=== PATIENT | female | born 1950 | race African-American/Black ===

== ENCOUNTER 2016-12-05 04:49 | Emergency (ER) | payer MEDICAID ==
[~2016-12-05] VITALS: Ht 172.7 cm; Wt 144.5 kg
[~2016-12-05 04:49] MED LIST: HYDR10TA16 PO; LACT20SO4 PO; LISI40TA PO; LORC10TA PO; METO10TA PO; NAPR500 PO; PHEN100 PO; PIOG30 PO; PROT40TA PO; STOO100C PO
[2016-12-05 04:51] VITALS: BP 138/75; PULSE 83; RESP 14; TEMP 98.1; O2SAT 97
[2016-12-05] MEDS ORDERED: ONDANSETRON HCL 4 MG/2 ML VIAL IVP ONE (05:00)
[2016-12-05] MEDS ORDERED: SODIUM CHLORIDE 0.9% FLUSH 10 ML FLUSH IVF PRN (05:00)
--- NOTE | 2016-12-05 05:18 | PD ---
HPI Chief Complaint: Seizure Time Seen by Provider: 04:54 Travel History International Travel<30 days: No Contact w/Intl Traveler<30days: No Traveled to known affect area: No History of Present Illness HPI 66-year-old female came to the emergency room brought by EMS after having a seizure episode. Patient has history of seizures. Her daughter called EMS. She was also complaining of headache on the right side. She has history of AVM. Usually she has left-sided weakness but says now it's weaker than her usual. However she also says that she usually gets this increased weakness after seizures. The paramedics says that she seems little more confused after she arrived to the emergency room. No history of vomiting or diarrhea. Patient takes Keppra for her seizures. Vital signs were stable. [facility] Past Medical History Narrative Medical List of her past medical, surgical, social and family history was reviewed from the nursing note. Arthritis: Yes Asthma: No Blood Disorders: No Heart Rhythm Problems: No Cancer: No Cardiovascular Problems: No (DENIES) High Cholesterol: No Chest Pain: No Congestive Heart Failure: No COPD: No Cerebrovascular Accident: Yes Diabetes: Yes Patient Takes Glucophage: No Diminished Hearing: No Endocrine: Yes Genitourinary: No Hypertension: Yes Immune Disorder: No Medical other: Yes (BRAIN ANEURYSM ) Musculoskeletal: No Neurologic: No Psychiatric: No Reproductive: No Respiratory: No Myocardial Infarction: No Sickle Cell Disease: No Sleep Apnea: No Thyroid Disease: No Tetanus Vaccination: > 5 Years Influenza Vaccination: No : 2 Para: 2 Miscarriage: 0 : 0 Past Surgical History Abdominal Surgery: Yes ( ABD PANNICULECTOMY 01/24/10) AICD: No Arteriovenous Shunt: No Cholecystectomy: Yes Eye Surgery: No Gynecologic Surgery: Yes (HYSTERECTOMY) Hysterectomy: Yes (1987) Insulin Pump: No Joint Replacement: No Oral Surgery: Yes (TONSILLECTOMY) Pacemaker: No Tonsillectomy: Yes Other Surgery: Yes (INCISION IN GROIN WENT UP TO BRAIN S/P STROKE) Social History Alcohol Use: No Tobacco Use: No Substance Use: No Allergies-Medications (Allergen,Severity, Reaction): Coded Allergies: penicillin G (Verified Allergy, Severe, 12/05/16) *MDRO Multi-Drug Resistant Organism (Verified Allergy, Unknown, 12/05/16) Enterococcus faecium VRE Comments List of her allergies reviewed from the nursing note. Reported Meds & Prescriptions Reported Meds & Active Scripts Active Reported Gabapentin 100 Mg Cap 100 Mg PO TID Meloxicam 7.5 Mg Tab 7.5 Mg PO DAILY Levetiracetam 500 Mg Tab 500 Mg PO BID Lisinopril 10 Mg Tab 10 Mg PO DAILY Simvastatin 20 Mg Tab 20 Mg PO DAILY Famotidine 20 Mg Tab 20 Mg PO BID Amlodipine (Amlodipine Besylate) 5 Mg Tab 5 Mg PO DAILY Narrative Medication List of her home medications reviewed from the nursing note. Review of Systems Except as stated in HPI: all other systems reviewed are Neg Physical Exam Narrative GENERAL: Awake, alert, anxious, moderate distress, morbidly obese SKIN: Focused skin assessment warm/dry. HEAD: Atraumatic. Normocephalic. EYES: Pupils equal and round. No scleral icterus. No injection or drainage. ENT: No nasal bleeding or discharge. Mucous membranes pink and moist. NECK: Trachea midline. No JVD. CARDIOVASCULAR: Regular rate and rhythm. No murmur appreciated. RESPIRATORY: No accessory muscle use. Clear to auscultation. Breath sounds equal bilaterally. GASTROINTESTINAL: Abdomen soft, non-tender, nondistended. Hepatic and splenic margins not palpable. MUSCULOSKELETAL: No obvious deformities. No clubbing. No cyanosis. No edema. NEUROLOGICAL: Awake and alert. No obvious cranial nerve deficits. 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 Normal speech. PSYCHIATRIC: Appropriate mood and affect; insight and judgment normal. Data Data Last Documented VS Vital Signs Date Time Temp Pulse Resp B/P (MAP) Pulse Ox O2 Delivery O2 Flow Rate FiO2 12/05/16 04:51 98.1 83 14 138/75 (96) [address] Brain W/O Iv Contrast(Rout) (12/05/16 ) Complete Blood Count With Diff (12/05/16 05:00) Basic Metabolic Panel (Bmp) (12/05/16 05:00) Creatine Kinase (Cpk) (12/05/16 05:00) Troponin I (12/05/16 05:00) Ecg Monitoring (12/05/16 05:00) Iv Access Insert/Monitor (12/05/16 05:00) Oximetry (12/05/16 05:00) Ondansetron Inj (Zofran Inj) (12/05/16 05:00) Sodium Chloride 0.9% Flush (Ns Flush) (12/05/16 05:00) Levetiracetam 1000 Mg Inj (Keppra 1000 M (12/05/16 06:00) Acetaminophen (Tylenol) (12/05/16 06:00) Electrocardiogram (12/05/16 05:04) Labs Laboratory Tests Test 12/05/16 05:10 White Blood Count 7.6 TH/MM3 Red Blood Count 4.46 MIL/MM3 Hemoglobin 12.8 GM/DL Hematocrit 37.6 % Mean Corpuscular Volume 84.2 FL Mean Corpuscular Hemoglobin 28.7 PG Mean Corpuscular Hemoglobin Concent 34.1 % Red Cell Distribution Width 13.7 % Platelet Count 213 TH/MM3 Mean Platelet Volume 9.0 FL Neutrophils (%) (Auto) 61.8 % Lymphocytes (%) (Auto) 26.7 % Monocytes (%) (Auto) 6.3 % Eosinophils (%) (Auto) 3.9 % Basophils (%) (Auto) 1.3 % Neutrophils # (Auto) 4.7 TH/MM3 Lymphocytes # (Auto) 2.0 TH/MM3 Monocytes # (Auto) 0.5 TH/MM3 Eosinophils # (Auto) 0.3 TH/MM3 Basophils # (Auto) 0.1 TH/MM3 CBC Comment DIFF FINAL Differential Comment Blood Urea Nitrogen 15 MG/DL Creatinine 0.95 MG/DL Random Glucose 109 MG/DL Calcium Level 8.6 MG/DL Sodium Level 143 MEQ/L Potassium Level 3.6 MEQ/L Chloride Level 108 MEQ/L Carbon Dioxide Level 27.5 MEQ/L Anion Gap 8 MEQ/L Estimat Glomerular Filtration Rate 71 ML/MIN Total Creatine Kinase 59 U/L Troponin I LESS THAN 0.02 NG/ML MDM Medical Decision Making Medical Screen Exam Complete: Yes Emergency Medical Condition: Yes Medical Record Reviewed: Yes Differential Diagnosis Seizure, seizure disorder, intracranial bleed Narrative Course 5:58 AM blood test results of back and within normal limit. CT scan shows a calcified AVM but otherwise negative. I ordered 1 g of Keppra bolus. Patient was complaining of headache and have given her Tylenol. I will discharge her home. She is to follow up with her primary care. Awaiting for her daughter to come and pick her up once the Keppra is done. Procedures EKG Prior to Arrival: No Diagnosis Primary Impression: Seizure Additional Impressions: Seizure disorder John's paralysis CVA, old, hemiparesis Headache Referrals: Primary Care Physician Additional Instructions: Return to the ER if the condition worsens or any other new concerns. Otherwise follow-up with your primary care. Med/Other Pt SpecificInfo: No Change to Meds Disposition: 01 DISCHARGE HOME Condition: Stable Conrado Woodward MD Dec 05, 2016 05:18
[2016-12-05 05:19] LABS: AUTOMATED NEUTROPHIL # 4.7 TH/MM3 (1.8-7.7); BASOPHIL # 0.1 TH/MM3 (0-0.2); BASOPHIL % 1.3 % (0.0-2.0); EOSINOPHIL # 0.3 TH/MM3 (0-0.4); EOSINOPHIL % 3.9 % (0.0-4.0); HEMATOCRIT 37.6 % (35.0-46.0); HEMO FLAGS DIFF FINAL; LYMPH % 26.7 % (9.0-44.0); MEAN CELL VOLUME 84.2 FL (80.0-100.0); MEAN CORPUSCULAR HEMOGLOBIN 28.7 PG (27.0-34.0); MEAN CORPUSCULAR HGB CONC 34.1 % (32.0-36.0); MONO % 6.3 % (0.0-8.0); NEUT % 61.8 % (16.0-70.0); PLATELET COUNT 213 TH/MM3 (150-450); RED BLOOD COUNT 4.46 MIL/MM3 (4.00-5.30); RED CELL DISTRIBUTION WIDTH 13.7 % (11.6-17.2); WHITE BLOOD COUNT 7.6 TH/MM3 (4.0-11.0)
--- NOTE | 2016-12-05 05:26 | RADRPT ---
EXAM DATE/TIME: 12/05/2016 05:10 [facility] COMPARISON: CT BRAIN W/O CONTRAST, February 25, 2013, 21:22. INDICATIONS : Altered mental status. RADIATION DOSE: 42.02 CTDIvol (mGy) MEDICAL HISTORY : Cardiovascular disease. Cerebrovascular disease. Hypertension. SURGICAL HISTORY : Hysterectomy. Cholecystectomy. ENCOUNTER: Initial ACUITY: 1 day PAIN SCALE: 0/10 LOCATION: cranial TECHNIQUE: Multiple contiguous axial images were obtained of the head. Using automated exposure control and adj ustment of the mA and/or kV according to patient size, radiation dose was kept as low as reasonably a chievable to obtain optimal diagnostic quality images. DICOM format image data is available electro nically for review and comparison. FINDINGS: CEREBRUM: The ventricles are normal for age. Stippled calcifications in the right temporoparietal region were present previously and are completely unchanged. There is a reported history of prior AVM in this reg ion. No evidence of midline shift, mass lesion, hemorrhage or acute infarction. No extra-axial fluid collections are seen. POSTERIOR FOSSA: The cerebellum and brainstem are intact. The 4th ventricle is midline. The cerebellopontine angle i s unremarkable. EXTRACRANIAL: The visualized portion of the orbits is intact. SKULL: The calvaria is intact. No evidence of skull fracture. CONCLUSION: 1. Stable, benign appearing stable calcifications in the right temporoparietal region, possibly assoc iated with a known AVM. 2. Otherwise, nothing acute. Bart Barrios MD on December 05, 2016 at 5:22 Board Certified Radiologist. This report was verified electronically.
[2016-12-05 05:40] LABS: ANION GAP 8 MEQ/L (5-15); BICARBONATE 27.5 MEQ/L (21.0-32.0); BLOOD UREA NITROGEN 15 MG/DL (7-18); CHLORIDE 108 MEQ/L (98-107); GLOMERULAR FILTRATION RATE 71 ML/MIN (>89); POTASSIUM 3.6 MEQ/L (3.5-5.1); SODIUM (NA) 143 MEQ/L (136-145)
[2016-12-05 05:51] LABS: CREATINE KINASE 59 U/L (26-192)
[2016-12-05] MEDS ORDERED: levETIRAcetam 1000 MG INJ 100 ML IV ONE (06:00)
[2016-12-05] MEDS ORDERED: ACETAMINOPHEN 325 MG TAB PO ONE (06:00)
[2016-12-05] MEDS ORDERED: MELO7.5T4 PO (06:03)
[2016-12-05] MEDS ORDERED: AMLO5TAB2 PO (06:03)
[2016-12-05] MEDS ORDERED: LISI10TA3 PO (06:03)
[2016-12-05] MEDS ORDERED: GABA100C4 PO (06:03)
[2016-12-05] MEDS ORDERED: SIMV20TA PO (06:03)
[2016-12-05] MEDS ORDERED: LEVE500T8 PO (06:03)
[2016-12-05] MEDS ORDERED: FAMO20TA2 PO (06:03)
--- NOTE | 2016-12-05 09:20 | EKG ---
Date Performed: 12/05/2016 Time Performed: 05:04:32 PTAGE: 66 years EKG: Sinus rhythm VOLTAGE CRITERIA FOR LVH ABNORMAL ECG Compared to prior tracing no significant change PREVIOUS TRACING : 02/25/2013 20.12 DOCTOR: Emre De La Torre Interpretating Date/Time 12/05/2016 09:17:26
== END 2016-12-05 07:02 | disposition home or self-care (01) ==
LOC: NEPC 04:49
DX: R56.9 Unspecified convulsions (principal); G83.84 Todd's paralysis (postepileptic); R51 Headache; Z86.73 Personal history of transient ischemic attack (TIA), and cerebral infarction without residual deficits; I10 Essential (primary) hypertension; Q28.2 Arteriovenous malformation of cerebral vessels
CPT/HCPCS: 70450; 80048; 82550; 84484; 85025; 93005; 96365; 96375; 99285; J1953; J2405